=== PATIENT | male | born 1980 | race Caucasian/White ===

== ENCOUNTER 2024-11-14 05:58 | Emergency (ER) | payer BC ==
[~2024-11-14] VITALS: Ht 188 cm; Wt 141.0 kg
[2024-11-14 06:00] VITALS: PULSE 76; O2SAT 100
[2024-11-14 06:08] VITALS: BP 130/80; RESP 18; TEMP 37; O2SAT 100
== END 2024-11-14 06:32 | disposition left against medical advice (07) ==
LOC: ER 05:58
DX: R06.02 Shortness of breath (principal); R10.9 Unspecified abdominal pain; Z53.21 Procedure and treatment not carried out due to patient leaving prior to being seen by health care provider